=== PATIENT | female | born 1930 | race Caucasian/White ===

== ENCOUNTER 2018-09-16 07:51 | Emergency (ER) | payer MEDICARE, BC ==
[~2018-09-16] VITALS: Ht 152.4 cm; Wt 53.5 kg
--- OUTSIDE RECORDS SUMMARY | 2018-09-16 07:57 | XMS REPORT | Continuity of Care Document ---
Author Organization Unknown Address Unknown Allergies There is no data. Medications There is no data. Problems There is no data. Procedures There is no data. Results There is no data. Encounters ACCT No. Visit Date/Time Discharge Status Pt. Type Provider Facility Loc./Unit Complaint [id number] 09/08/2018 10:00:00 09/08/2018 23:59:59 CLS Outpatient [facility]
[2018-09-16] MEDS ORDERED: ACETAMINOPHEN 500 MG TAB (TYLENOL) PO STA (08:06)
[2018-09-16] MEDS ORDERED: NEO/POLY/BAC (NEOSPORIN) OINT 15 GM TUBE TOP STA (08:07)
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
--- NOTE | 2018-09-16 08:49 | Diagnostic Imaging Report ---
PROCEDURE: CT head, face, and cervical spine without contrast. TECHNIQUE: Multiple contiguous axial images were obtained through the head, neck, and facial bones without the use of intravenous contrast. Sagittal and coronal reformations through the cervical spine and facial bones were also performed. Auto Exposure Controls were utilized during the CT exam to meet ALARA standards for radiation dose reduction. INDICATION: Fall. Head injury. Left facial injury. COMPARISON: None. FINDINGS: CT head: Advanced generalized cerebral and cerebellar parenchymal volume loss. Advanced leukoaraiosis. No CT evidence for territorial infarction. Osseous structures are intact. Visualized paranasal sinuses and mastoids clear. Normal alignment of the temporomandibular joints. No maxillofacial fractures. CT cervical spine: Minimal grade 1 anterolisthesis of C4 and C5. Moderate to advanced degenerative endplate changes are greatest C5-C7. Vertebral body heights preserved. No fractures. No high-grade spinal canal narrowing is evident on this noncontrast exam. The visualized paravertebral soft tissues are unremarkable. Lung apices clear. IMPRESSION: 1. No acute intracranial or cervical spine CT findings. 2. Chronic and incidental findings as above. Dictated by: Dictated on workstation # [id number]
[2018-09-16 08:56] LABS: BILIRUBIN,URINE NEGATIVE (NEGATIVE); CLARITY,URINE CLEAR; COLOR,URINE YELLOW; GLUCOSE, URINE (UA) NEGATIVE (NEGATIVE); KETONES,URINE NEGATIVE (NEGATIVE); NITRITE,URINE NEGATIVE (NEGATIVE); PH,URINE 6.5 (5-9); PROTEIN,URINE NEGATIVE (NEGATIVE)
[2018-09-16 08:57] LABS: AMORPHOUS SEDIMENT,UR FEW AMOR URATES /LPF; BACTERIA,URINE TRACE /HPF; LEUKOCYTE ESTERASE ,URINE NEGATIVE (NEGATIVE); UROBILINOGEN,URINE 0.2 MG/DL (NORMAL)
[2018-09-16 09:50] VITALS: BP 163/52
== END 2018-09-16 09:50 | disposition home or self-care (01) ==
LOC: ER FS 07:54
DX: S00.03XA Contusion of scalp, initial encounter (principal); S10.93XA Contusion of unspecified part of neck, initial encounter; S00.83XA Contusion of other part of head, initial encounter; S90.811A Abrasion, right foot, initial encounter; R40.2142 Coma scale, eyes open, spontaneous, at arrival to emergency department; R40.2252 Coma scale, best verbal response, oriented, at arrival to emergency department; R40.2362 Coma scale, best motor response, obeys commands, at arrival to emergency department; Z88.2 Allergy status to sulfonamides; Z88.8 Allergy status to other drugs, medicaments and biological substances; W01.0XXA Fall on same level from slipping, tripping and stumbling without subsequent striking against object, initial encounter; Y92.129 Unspecified place in nursing home as the place of occurrence of the external cause
CPT/HCPCS: 70450; 70486; 72125; 81000